=== PATIENT | male | born 1965 | race Caucasian/White ===

== ENCOUNTER 2017-07-23 12:51 | Emergency (ER) | payer SELFPAY ==
[2017-07-23 13:59] LABS: BASOPHILS 0.2 % (0-2); EOSINOPHILS 2.5 % (0-7); HEMATOCRIT 48.3 % (42.0-54.0); HEMOGLOBIN 16.7 g/dL (13.5-17.5); IMMATURE GRANULOCYTES 0.3 % (0-5); LYMPHOCYTES 24.1 % (15-50); MCH 30.5 pg (26.0-34.0); MCHC 34.6 g/dL (31.0-37.0); MCV 88.3 fL (80.0-100.0); MEAN PLATELET VOLUME 10.3 fL (7.4-10.4); MONOCYTES 5.1 % (2-11); NEUTROPHILS 67.8 % (40-80); PLATELET COUNT 238 10x3/uL (130-400); RBC 5.47 10x6/uL (4.20-6.10); RDW 12.8 % (11.5-14.5); WBC 13.2 10x3/uL (4.8-10.8)
[2017-07-23 14:17] LABS: ALBUMIN 4.2 g/dL (3.4-5.0); ALKALINE PHOSPHATASE 40 U/L (46-116); ALT (SGPT) 43 U/L (10-68); CALC OSMOLALITY 281 mosm/kg (275-300); CARBON DIOXIDE 34.3 mmol/L (21.0-32.0); CHLORIDE - SERUM 101 mmol/L (98-107); CREATININE - SERUM 0.8 mg/dL (0.6-1.3); GLUCOSE 95 mg/dL (74-106); PROTEIN - SERUM 7.4 g/dL (6.4-8.2); SODIUM 141 mmol/L (136-145); UREA NITROGEN 16 mg/dL (7-18); eGFR NON AFRICAN AMERICAN > 90 mL/min (90-120)
[2017-07-23 14:25] LABS: CREATINE KINASE 131 UL (21-232); MAGNESIUM - SERUM 1.8 mg/dL (1.8-2.4); PRO BNP 86 pg/mL (0-125); TROPONIN-I < 0.017 ng/mL (0.000-0.060)
== END 2017-07-23 14:50 | disposition home or self-care (01) ==
LOC: D.ER 12:51
PROVIDERS: Emergency Medicine
DX: R00.2 Palpitations (principal); F17.200 Nicotine dependence, unspecified, uncomplicated; I44.7 Left bundle-branch block, unspecified

== ENCOUNTER → 2017-08-05 13:00 | Outpatient (CLI) | payer SELFPAY | END | disposition home or self-care (01) | LOC: D.ECHO 13:00 | DX: R42 Dizziness and giddiness (principal); R07.9 Chest pain, unspecified; R00.2 Palpitations ==

== ENCOUNTER 2018-03-30 19:04 | Emergency (ER) | payer OTHER ==
[~2018-03-30] VITALS: Ht 175.3 cm; Wt 70.5 kg
[2018-03-30 19:10] VITALS: Ht 175.3 cm; Wt 70.5 kg
[2018-03-30] MEDS ORDERED: EC-NAPROSYN500 MG PO (20:39)
[2018-03-30] MEDS ORDERED: ROBAXIN500 MG PO (20:39)
[2018-03-30 21:05] VITALS: BP 139/99
== END 2018-03-30 21:05 | disposition home or self-care (01) ==
LOC: D.ER 19:04
DX: S50.02XA Contusion of left elbow, initial encounter (principal); S40.012A Contusion of left shoulder, initial encounter; S70.02XA Contusion of left hip, initial encounter; S60.012A Contusion of left thumb without damage to nail, initial encounter; V89.2XXA Person injured in unspecified motor-vehicle accident, traffic, initial encounter; Y93.89 Activity, other specified; Y92.89 Other specified places as the place of occurrence of the external cause; F17.200 Nicotine dependence, unspecified, uncomplicated

== ENCOUNTER 2019-03-09 10:12 | Emergency (ER) | payer OTHER ==
[~2019-03-09] VITALS: Ht 175.3 cm; Wt 75.0 kg
[~2019-03-09 10:12] MED LIST: EC-NAPROSYN500 MG PO; ROBAXIN500 MG PO
[2019-03-09 10:23] VITALS: BP 126/84; Ht 175.3 cm; Wt 75.0 kg
[2019-03-09 11:01] LABS: BASOPHILS 0.2 % (0-2); EOSINOPHILS 2.7 % (0-7); HEMOGLOBIN 16.9 g/dL (13.5-17.5); IMMATURE GRANULOCYTES 0.2 % (0-5); MCV 86.1 fL (80.0-100.0); MEAN PLATELET VOLUME 10.4 fL (7.4-10.4); MONOCYTES 6.1 % (2-11); NEUTROPHILS 65.8 % (40-80); PLATELET COUNT 265 10x3/uL (130-400); RBC 5.46 10x6/uL (4.20-6.10)
[2019-03-09 11:02] LABS: ALBUMIN 4.1 g/dL (3.4-5.0); ALKALINE PHOSPHATASE 57 U/L (46-116); ALT (SGPT) 36 U/L (10-68); BILIRUBIN - TOTAL 0.77 mg/dL (0.2-1.3); CALC OSMOLALITY 277 mosm/kg (275-300); CALCIUM 9.2 mg/dL (8.5-10.1); CARBON DIOXIDE 29.6 mmol/L (21.0-32.0); CHLORIDE - SERUM 103 mmol/L (98-107); CREATININE - SERUM 0.8 mg/dL (0.6-1.3); GLUCOSE 97 mg/dL (74-106); POTASSIUM - SERUM 4.6 mmol/L (3.5-5.1); PROTEIN - SERUM 7.5 g/dL (6.4-8.2); SODIUM 140 mmol/L (136-145); UREA NITROGEN 9 mg/dL (7-18); eGFR NON AFRICAN AMERICAN > 90 mL/min (90-120)
[2019-03-09] MEDS ORDERED: HYDROCODON-ACE1 EAC7 PO (11:25)
[2019-03-09] MEDS ORDERED: SULFAMETHOXAZOL1 TA2 PO (11:25)
== END 2019-03-09 11:42 | disposition home or self-care (01) ==
LOC: D.ER 10:12
PROVIDERS: Family Medicine
DX: S90.465A Insect bite (nonvenomous), left lesser toe(s), initial encounter (principal); W57.XXXA Bitten or stung by nonvenomous insect and other nonvenomous arthropods, initial encounter; Y93.89 Activity, other specified; Y92.89 Other specified places as the place of occurrence of the external cause; L03.032 Cellulitis of left toe

== ENCOUNTER 2019-03-12 09:03 | Emergency (ER) | payer OTHER ==
[~2019-03-12] VITALS: Ht 175.3 cm; Wt 75.0 kg
[~2019-03-12 09:03] MED LIST changes: +HYDROCODON-ACE1 EAC7 PO; +SULFAMETHOXAZOL1 TA2 PO
[2019-03-12 09:12] VITALS: Ht 175.3 cm; Wt 75.0 kg
[2019-03-12] MEDS ORDERED: KEFLEX500 MG PO (12:21)
[2019-03-12 12:47] VITALS: BP 121/76
== END 2019-03-12 12:48 | disposition home or self-care (01) ==
LOC: D.ER 09:03
DX: L03.116 Cellulitis of left lower limb (principal)

== ENCOUNTER 2019-12-09 08:15 | Emergency (ER) | payer OTHER ==
[~2019-12-09] VITALS: Ht 175.3 cm; Wt 72.7 kg
[~2019-12-09 08:15] MED LIST changes: +KEFLEX500 MG PO
[2019-12-09 08:33] VITALS: Ht 175.3 cm; Wt 72.7 kg
[2019-12-09] MEDS ORDERED: ERYTHROMYCIN OPT1 GM LEFT EYE (09:11)
[2019-12-09 09:21] VITALS: BP 135/81
== END 2019-12-09 09:21 | disposition home or self-care (01) ==
LOC: D.ER 08:15
DX: S05.02XA Injury of conjunctiva and corneal abrasion without foreign body, left eye, initial encounter (principal)

== ENCOUNTER 2020-12-01 09:35 | Observation (INO) | payer OTHER ==
[2020-12-01] VITALS (13 sets, daily range): BP systolic 111–145; BP diastolic 67–96; Ht 175.3 cm; Wt 67.6 kg
[~2020-12-01] VITALS: Ht 175.3 cm; Wt 67.6 kg
[~2020-12-01 09:35] MED LIST changes: +ERYTHROMYCIN OPT1 GM LEFT EYE
[2020-12-01 10:25] LABS: BASOPHILS 0.4 % (0-2); EOSINOPHILS 0.1 % (0-7); HEMATOCRIT 42.1 % (42.0-54.0); LYMPHOCYTES 14.6 % (15-50); MCH 29.4 pg (26.0-34.0); MCHC 33.2 g/dL (31.0-37.0); MCV 88.5 fL (80.0-100.0); MEAN PLATELET VOLUME 8.5 fL (7.4-10.4); MONOCYTES 4.8 % (2-11); NEUTROPHILS 80.1 % (40-80); RBC 4.76 10x6/uL (4.20-6.10); RDW 13.5 % (11.5-14.5); WBC 17.8 10x3/uL (4.8-10.8)
--- NOTE | 2020-12-01 10:28 | NUR ---
PATIENT ASSISTED TO BATHROOM FOR STOOL SPECIMEN. OCCULT BLOOD POSITIVE. DR. GILLETTE INFORMED.
[2020-12-01 10:33] LABS: CALC OSMOLALITY 292 mosm/kg (275-300); CALCIUM 8.6 mg/dL (8.5-10.1); CARBON DIOXIDE 26.3 mmol/L (21.0-32.0); CHLORIDE - SERUM 103 mmol/L (98-107); CREATININE - SERUM 0.8 mg/dL (0.6-1.3); SODIUM 140 mmol/L (136-145); UREA NITROGEN 34 mg/dL (7-18); eGFR NON AFRICAN AMERICAN > 90 mL/min (90-120)
[2020-12-01 10:39] LABS: GLUCOSE 201 mg/dL (74-106)
[2020-12-01 10:45] LABS: PLATELET COUNT 319 10x3/uL (130-400)
[2020-12-01 10:48] LABS: ALBUMIN 3.7 g/dL (3.4-5.0); ALKALINE PHOSPHATASE 31 U/L (30-120); ALT (SGPT) 38 U/L (10-68); AMYLASE - SERUM 60 U/L (25-115); BILIRUBIN - TOTAL 0.97 mg/dL (0.2-1.3); CKMB 0.9 U/L (0.0-3.6); CREATINE KINASE 39 UL (21-232); PROTEIN - SERUM 6.9 g/dL (6.4-8.2)
[2020-12-01 10:49] LABS: LIPASE 25 U/L (73-393); TROPONIN-I < 0.017 ng/mL (0.000-0.060)
[2020-12-01 11:12] LABS: INR 1.21 (0.85-1.17); PROTIME 14.1 SECONDS (11.6-15.0)
--- NOTE | 2020-12-01 11:12 | NUR ---
PATIENT IN CT FOR CT OF ABDOMEN WITH CONTRAST.
[2020-12-01 11:13] LABS: APTT 32.4 SECONDS (22.8-39.4)
--- NOTE | 2020-12-01 12:02 | NUR ---
sTOOL FOR CULTURE SENT TO LAB. URINE FOR URINALYSIS REQUESTED FROM PATIENT. STATES "I CAN'T GO RIGHT NOW".
--- NOTE | 2020-12-01 12:50 | NUR ---
URINE SPECIMEN TO LAB.
--- NOTE | 2020-12-01 12:51 | NUR ---
URINE SPECIMEN TO LAB.
[2020-12-01 13:22] LABS: BILIRUBIN NEGATIVE (NEGATIVE); KETONE NEGATIVE (NEGATIVE); NITRITE NEGATIVE (NEGATIVE); UROBILINOGEN NORMAL mg/dL (< 2)
[2020-12-01 13:23] LABS: BACTERIA FEW HPF (NONE SEEN); SQUAMOUS EPITHELIAL 0-5 HPF (0-4); WHITE CELLS - URINE 0-5 HPF (0-1)
--- NOTE | 2020-12-01 14:15 | NUR ---
PATIENT TO FLOOR. THREW UP ALMOST A HALF OF A BLUE BAG OF YOLANDA BLOOD AND BLOOD CLOTS. CALLED [facility] CONSULTING NURSE. NEW ORDERS RECIEVED AT THIS TIME. CALL LIGHT WITHIN REACH.
[2020-12-01] MEDS ORDERED: ADVIL200 MG PO (14:29)
--- NOTE | 2020-12-01 15:00 | NUR ---
TRIED TO CALL PATIENTS FATHER TO LET HIM KNOW PATIENT MOVED TO ICU. NO ANSWER AT THIS TIME. VOICE BOX IS FULL. UNABLE TO LEAVE MESSAGE. NOTIFIED PATIENT AND ICU NURSE.
--- NOTE | 2020-12-01 15:14 | NUR ---
PATIENT TRANSFERRED TO ICU PER ORDER. BEDSIDE REPORT GIVEN. NO QUESTIONS AT THIS TIME.
--- NOTE | 2020-12-01 15:15 | NUR ---
RECIEVED PT FROM FLOOR AT THIS TIME VIA BED ACCOMPANIED BY HOSPITAL STAFF WITH PERSONAL ITEMS (CELL PHONE, WALLET, GLASSES, CLOTHES, SANDALS. HE CURRENTLY DENIES ANY PAIN OR DISCOMFORTS. HE DENIES NAUSEA OR ABDOMINAL PAIN. HE IS ALERT AND ORIENTED. WILL CONTINUE PLAN OF CARE.
[2020-12-01 16:42] LABS: HEMATOCRIT 32.3 % (42.0-54.0); HEMOGLOBIN 10.9 g/dL (13.5-17.5)
--- NOTE | 2020-12-01 17:34 | NUR ---
SPOKE WITH DR CONNORS, NOTIFIED OF H&H LEVELS. HE STATED HE WOULD BE BY HERE SHORTLY TO SEE PT.
--- NOTE | 2020-12-01 19:20 | NUR ---
REPORT REC'D AND CARE ASSUMED, REC'D PT SITTING UP IN BED WATCHING TV, PT COMPLAINS OF HEADACHE AND WANTING TO SOMETHING TO EAT, RIGHT FOREARM PIV PATENT WITHOUT REDNESS OR EDEMA, LEFT A/C PIV WITHOUT REDNESS OR EDEMA, MAEE, SR UP X 2, BED IN LOW POSITION, CALL LIGHT IN REACH.
[2020-12-01 19:59] LABS: HEMATOCRIT 32.1 % (42.0-54.0)
--- NOTE | 2020-12-01 20:00 | NUR ---
DR. CONNORS PAGED REGARDING DIET, PT OKAY FOR CLEAR LIQUIDS UNTIL MIDNIGHT. CHICKEN AND BEEF BROTH SERVED, 650MG TYLENOL GIVEN PO FOR HEADACHE, PT DENIES FURTHER NEEDS.
--- NOTE | 2020-12-01 20:20 | NUR ---
LAB AT TO TIMED LAB DRAW
[2020-12-02] VITALS (18 sets, daily range): BP systolic 108–139; BP diastolic 56–82
--- NOTE | 2020-12-02 01:04 | NUR ---
PT REQUESTING A FRESH SODA TO DRINK, REMINDED PT OF NPO STATUS AT MIDNIGHT, LEMON GLYCERIN SWABS PROVIDED FOR COMFORT, PT DENIES OTHER NEEDS.
[2020-12-02 01:18] LABS: HEMATOCRIT 31.8 % (42.0-54.0); HEMOGLOBIN 11.1 g/dL (13.5-17.5)
--- NOTE | 2020-12-02 03:50 | NUR ---
PT COMPLAINS OF STOMACH PAINS AND NAUSEA FROM BEING HUNGRY, ZOFRAN GIVEN AT THIS TIME.
[2020-12-02 05:15] LABS: ALKALINE PHOSPHATASE 21 U/L (30-120); ALT (SGPT) 35 U/L (10-68); BILIRUBIN - TOTAL 0.75 mg/dL (0.2-1.3); CALCIUM 7.7 mg/dL (8.5-10.1); CARBON DIOXIDE 29.2 mmol/L (21.0-32.0); CHLORIDE - SERUM 108 mmol/L (98-107); CREATININE - SERUM 0.8 mg/dL (0.6-1.3); POTASSIUM - SERUM 3.8 mmol/L (3.5-5.1); PROTEIN - SERUM 5.5 g/dL (6.4-8.2); SODIUM 143 mmol/L (136-145); eGFR NON AFRICAN AMERICAN > 90 mL/min (90-120)
[2020-12-02 05:16] LABS: CALC OSMOLALITY 287 mosm/kg (275-300); GLUCOSE 102 mg/dL (74-106); UREA NITROGEN 20 mg/dL (7-18)
[2020-12-02 06:44] LABS: BASOPHILS 0.7 % (0-2); EOSINOPHILS 1.7 % (0-7); HEMATOCRIT 32.6 % (42.0-54.0); HEMOGLOBIN 11.1 g/dL (13.5-17.5); LYMPHOCYTES 35.3 % (15-50); MCH 30.2 pg (26.0-34.0); MCV 88.8 fL (80.0-100.0); MEAN PLATELET VOLUME 9.6 fL (7.4-10.4); MONOCYTES 5.6 % (2-11); NEUTROPHILS 56.7 % (40-80); RDW 13.4 % (11.5-14.5)
[2020-12-02 06:48] LABS: PLATELET COUNT 196 10x3/uL (130-400); RBC 3.67 10x6/uL (4.20-6.10); WBC 12.6 10x3/uL (4.8-10.8)
[2020-12-02 08:57] LABS: HEMATOCRIT 29.5 % (42.0-54.0)
--- NOTE | 2020-12-02 11:58 | NUR ---
PER DR DORY HATCH FOR CLEAR LIQUID DIET AND PT CAN GO TO THE FLOOR. PT LYING IN BED AWAKE, DENIES ANY CURRENT PAINS OR DISCOMFORTS. VSS. WILL CONTINUE PLAN OF CARE.
--- NOTE | 2020-12-02 13:36 | NUR ---
PT REQUESTS TO GO HOME INSTEAD OF GOING TO THE FLOOR TODAY. SPOKE WITH DR CONNORS, HE STATED HE IS OKAY TO GO TO THE FLOOR LONG DISCHARGED ON A PPI MEDICATION. CALLED DR YOST AND NOTIFIED HER, SHE STATED IT WILL BE OKAY FOR PT TO GO HOME TODAY AND SHE WILL BE BY IN A LITTLE WHILE TO PLACE THE ORDERS.
[2020-12-02] MEDS ORDERED: PROTONIX40 MG PO (13:42)
--- NOTE | 2020-12-02 14:36 | NUR ---
DISCHARGE PAPERWORK SIGNED BY PT. HE HAS RECIEVED HIS DISCHARGE TEACHINGS. FATHER AT BEDSIDE. PT STATES HE WILL BE ABLE TO FOLLOWUP WITH PCP IN 1 WEEK AND WILL BE ABLE TO [employer] REPRESENT[employer]IVE HIS NEW PERSCRIPTION. DENEIS ANY QUESTIONS OR CONCERNS. PER DR CONNORS PT NEEDS TO EAT A SOFT DIET FOR 2 DAYS THEN ADVANCE DIET TOLERATED. PT STATES HE UNDERSTANDS TEACHINGS. LT AC AND RT FOREARM IVS DCD, CATHETER TIP INTACT. NO ACUTE DISTRESS NOTED. DISCHARGED VIA PERSONAL VEHICLE WITH FATHER TRANSPORTED VIA WHEELCHAIR WITH STAFF AND FATHER. HE TRANSFERRED SELF INTO VEHICLE WITHOUT DIFFICULTY. NO FURTHER ACTIONS.
== END 2020-12-02 14:39 | disposition home or self-care (01) ==
LOC: D.ER 09:35 → D.MS 11:51 → OBSVTIME 11:51 → D.ICU 15:04
PROVIDERS: Family Medicine; ADMIT Family Medicine; ATTEND Family Medicine
DX: K92.2 Gastrointestinal hemorrhage, unspecified (principal); R10.9 Unspecified abdominal pain; R11.2 Nausea with vomiting, unspecified; E86.0 Dehydration; R19.7 Diarrhea, unspecified; R31.9 Hematuria, unspecified; R19.5 Other fecal abnormalities; R00.0 Tachycardia, unspecified; R53.83 Other fatigue